=== PATIENT | female | born 2000 | race Caucasian/White ===

== ENCOUNTER → 2023-08-08 | Outpatient (CLI) | payer BC ==
[2023-08-09 03:10] LABS: ALT 23 U/L (8-44); AST 19 U/L (13-35); Albumin 4.4 g/dL (3.8-4.9); Albumin/Globulin Ratio 1.52 Ratio (1.60-3.17); Alkaline Phosphatase 126 U/L (41-126); BUN/Creat Ratio 10.75 Ratio (12.00-20.00); Blood Urea Nitrogen 8.6 mg/dL (9.0-27.0); Calcium 9.8 mg/dL (8.7-10.3); Cancer Antigen 125 9.4 U/mL (0.0-30.1); Carbon Dioxide 27.4 mmol/L (21.6-31.8); Chloride 102 mmol/L (96-109); Chol/HDL Ratio 3.44 Ratio; Globulin 2.9 g/dL (1.6-3.3); Glucose 104 mg/dL (70-110); LDL Cholesterol,Calculated 97.7 mg/dL (0.0-131.0); Lipase 27 U/L (14-63); Potassium 4.4 mmol/L (3.5-5.5); Sodium 140 mmol/L (135-145); Total Bilirubin 0.2 mg/dL (0.3-1.2); Total Protein 7.3 g/dL (6.2-8.2)
[2023-08-09 03:40] LABS: Basophils # (A) 0.06 X 10*3/uL (0.00-0.10); Basophils % (A) 0.7 %; Eosinophils # (A) 0.43 X 10*3/uL (0.04-0.35); Eosinophils % (A) 5.3 %; HCT 40.6 % (37.2-46.3); HGB 12.7 g/dL (12.0-15.0); Lymphocytes # (A) 2.84 X 10*3/uL (0.90-5.00); Lymphocytes % (A) 35.1 %; MCH 28.5 pg (27.0-32.0); MCHC 31.3 g/dL (32.0-37.0); MCV 91.2 FL (80.0-97.0); Mean Platelet Volume 10.4 FL (9.5-12.2); Monocytes # (A) 0.54 X 10*3/uL (0.20-1.00); Monocytes % (A) 6.7 %; NRBC Per 100 WBC 0 X 10*3/uL (0.00-0.01); Neutrophils # (A) 4.19 X 10*3/uL (1.80-7.70); Platelet Count 323 X 10*3/uL (140-440); RBC 4.45 X 10*6/uL (4.10-5.20); RDW 14.5 % (11.5-14.5); WBC 8.08 X 10*3/uL (4.50-10.00)
[2023-08-09 03:41] LABS: % Iron Saturation 8.55 (12.00-45.00); Ferritin 23.1 ng/mL (10.0-291.0); Iron 37 UG/DL (50-170); T4, Free (Free Thyroxine) 0.83 ng/dL (0.80-1.80); Total Iron Binding Capacity 433 UG/DL (228-460)
[2023-08-09 04:50] LABS: Erythrocyte Sedimentation Rate 16 mm/Hr (0-20)
== END | disposition home or self-care (01) ==
LOC: LABWHC1 15:37
PROVIDERS: ATTEND Family Medicine
DX: E55.9 Vitamin D deficiency, unspecified (principal); D64.9 Anemia, unspecified; E66.9 Obesity, unspecified; R10.84 Generalized abdominal pain
CPT/HCPCS: 36415; 80053; 80061; 82306; 82607; 82728; 82746; 83036; 83540; 83550; 83690; 84439; 84443; 85025; 85652; 86304

== ENCOUNTER → 2023-08-08 | Outpatient (CLI) | payer BC ==
--- NOTE | 2023-08-08 15:40 | XR ---
EXAMINATION TYPE: XR abdomen 1V DATE OF EXAM: 08/08/2023 COMPARISON: NONE HISTORY: Nausea and vomiting TECHNIQUE: One view abdominal series FINDINGS: The osseous structures are intact. The bowel gas pattern is nonspecific. Extensive retained fecal de bris throughout the colon. No suspicious calcifications. Punctate calcifications the pelvis are likel y related to phleboliths. IMPRESSION: 1. Nonspecific abdomen. Correlate for constipation.
== END | disposition home or self-care (01) ==
LOC: RADXRMAIN 15:21
PROVIDERS: ATTEND Student in an Organized Health Care Education/Training Program
DX: R10.84 Generalized abdominal pain (principal); R11.2 Nausea with vomiting, unspecified
CPT/HCPCS: 74018

== ENCOUNTER → 2024-01-31 | Outpatient (CLI) | payer BC ==
[2024-01-31 19:43] LABS: Insulin Level 21.5 mIU/mL (3.0-25.0)
[2024-01-31 19:45] LABS: ALT 79 U/L (8-44); AST 68 U/L (13-35); Blood Urea Nitrogen 5.4 mg/dL (9.0-27.0); Estradiol 53.7 pg/mL; Glucose 95 mg/dL (70-110); HCG,Quantitative Serum <3.0 mIU/mL (0.0-6.0)
[2024-01-31 19:59] LABS: Follicle Stimulating Hormone 5.4 mIU/mL
[2024-02-01 13:37] LABS: Anti-Mullerian Hormone 9.56 ng/mL (1.02 - 14.63)
== END | disposition home or self-care (01) ==
LOC: LABWHC1 13:55
PROVIDERS: ATTEND Obstetrics & Gynecology Reproductive Endocrinology
DX: Z31.49 Encounter for other procreative investigation and testing (principal); E28.2 Polycystic ovarian syndrome
CPT/HCPCS: 36415; 82306; 82397; 82565; 82627; 82670; 82947; 83001; 83036; 83498; 83525; 84146; 84402; 84403; 84439; 84443; 84450; 84460; 84481; 84520; 84702; 86376; 86762; 86787; 86850; 86900; 86901